=== PATIENT | male | born 1980 | race Two or more races ===

== ENCOUNTER 2024-11-10 08:49 | Inpatient (IN) | payer OTHER ==
[~2024-11-10] VITALS: Ht 170.2 cm; Wt 74.8 kg
--- NOTE | 2024-11-10 09:27 | NUR ---
SE RECIBE PTE ALERTA Y ORIENTADO X3. PTE REFIERE ATAQUE DE ASMA DESDE LA MADRUGADA. SE MIDEN S/V Y SE UBICA.
[2024-11-10] MEDS ORDERED: IPRATROPIUM BROMIDE 0.5 MG/2.5 ML AMPUL.NEB IH SCH ×2 (09:30→18:37)
[2024-11-10] MEDS ORDERED: METHYLPREDNISOLONE SOD SUCC 125 MG VIAL IV ONE (09:30)
[2024-11-10] MEDS ORDERED: LEVALBUTEROL HCL 0.63 MG/3 ML SOLUTION IH SCH (09:30)
[2024-11-10] MEDS ORDERED: METHYLPREDNISOLONE SOD SUCC 125 MG VIAL ONE (09:32)
[2024-11-10] MEDS ORDERED: WATER FOR INJ.,BACTERIOSTATIC 30 ML VIAL IJ ONE (09:32)
[2024-11-10] MEDS ORDERED: LEVALBUTEROL HCL 1.25 MG/3 ML SOLUTION IH ONE (09:33)
[2024-11-10] MEDS ORDERED: IPRATROPIUM BROMIDE 0.5 MG/2.5 ML AMPUL.NEB IH ONE (09:33)
[2024-11-10 09:44] LABS: ABG PH 7.445 (7.35-7.45); ABG pCO2 30.6 mmHg (35-45); BASE EXCESS -2.3 mmol/l; BICARBONATE 20.5 mmol/l (23-25); SaO2 94.9 %; Tco2 21.5 mmol/l
[2024-11-10 10:57] LABS: allen test SATISFACTORY; mode ROOM AIR; o2 21 %; puncture site RADIAL RIGHT
[2024-11-10 11:27] LABS: HEMATOCRIT 45.9 % (39.0-48.0); MEAN CELL VOLUME 86.8 fL (80.0-100.00); MEAN CORPUSCULAR HEMOGLOBIN 30.3 pg (27.00-32.0); MEAN CORPUSCULAR HGB CONC 34.9 g/dl (32.0-36.0); PLATELET COUNT 193 K/uL (150-450); RED CELL DISTRIBUTION WIDTH 12.9 % (11.5-14.5)
[2024-11-10 12:06] LABS: COVID-19 AG NEGATIVE (NEGATIVE)
[2024-11-10 12:07] LABS: INFLUENZA A AG NEGATIVE (NEGATIVE)
--- NOTE | 2024-11-10 12:27 | NUR ---
SE ORIENTA A PACIENTE SOBRE [place] MEDICO. SE COLECTAN MUESTRAS DE LABORATORIO Y SE CANALIZA BAJO MEDIDAS ASEPTICAS. SE ADMINISTRAN MEDICAMENTOS KONRAD ORDEN MEDICA
[2024-11-10] MEDS ORDERED: LEVALBUTEROL HCL 0.63 MG/3 ML SOLUTION IH ONE ×2 (13:15→13:36)
[2024-11-10] MEDS ORDERED: CEFTRIAXONE SODIUM 1,000 MG VIAL IV ONE (13:15)
[2024-11-10] MEDS ORDERED: CEFTRIAXONE SODIUM 1,000 MG VIAL ONE (14:18)
[2024-11-10] MEDS ORDERED: CEFTRIAXONE SODIUM 2,000 MG in 0.9 % SODIUM CHLORIDE 100 ML IV SCH (18:34)
[2024-11-10] MEDS ORDERED: AZITHROMYCIN 500 MG in DEXTROSE 5 % IN WATER 250 ML IV SCH (18:34)
[2024-11-10] MEDS ORDERED: METHYLPREDNISOLONE SOD SUCC 40 MG VIAL IV SCH (18:36)
[2024-11-10] MEDS ORDERED: LEVALBUTEROL HCL 1.25 MG/3 ML SOLUTION IH SCH (18:37)
[2024-11-10] MEDS ORDERED: GUAIFEN/DEXTROMETHORPHAN/PE 10 ML BLIST.PACK PO SCH (18:38)
[2024-11-10] MEDS ORDERED: 0.9 % SODIUM CHLORIDE 1,000 ML IV SCH (18:45)
[2024-11-10] MEDS ORDERED: ACETAMINOPHEN 500 MG GEL..CAP PO PRN (18:45)
[2024-11-10] MEDS ORDERED: CEFTRIAXONE SODIUM 2,000 MG VIAL ONE (19:02)
[2024-11-10] MEDS ORDERED: METHYLPREDNISOLONE SOD SUCC 40 MG VIAL ONE (19:02)
[2024-11-10] MEDS ORDERED: AZITHROMYCIN 500 MG VIAL IV ONE (19:03)
[2024-11-10] MEDS ORDERED: GUAIFEN/DEXTROMETHORPHAN/PE 10 ML BLIST.PACK PO ONE (19:03)
[2024-11-10] MEDS ORDERED: AZITHROMYCIN 500 MG VIAL IV SCH (19:30)
[2024-11-10 19:44] VITALS: BP 100/60
[2024-11-10 20:08] LABS: ALBUMIN 3.8 gm/dL (3.4-5.0); BILIRUBIN TOTAL 0.5 mg/dL (0.3-1.2); CALCIUM 9.4 mg/dL (8.5-10.1); CREATININE SERUM 0.98 mg/dL (0.70-1.30); GFR 82.34; GLOBULINA 4.3 G/DL (2.4-3.5); POTASSIUM 4.22 mEq/L (3.5-5.1); TOTAL PROTEIN 8.1 gm/dL (6.4-8.2)
[2024-11-10 20:09] LABS: C-REACTIVE PROTEIN 1.21 MG/DL (0.00-0.29)
[2024-11-10 20:11] LABS: INR 1.05; PARTIAL THROMBOPLASTIN TIME 29.9 SECONDS (22.0-34.0); PROTHROMBIN TIME 11.4 SECONDS (9.0-11.5)
[2024-11-10 20:27] LABS: PH,URINE 5.5 (5.0-8.0); URINE APPEARANCE Clear; URINE BILIRRUBIN Negative (NEGATIVE); URINE BLOOD Negative; URINE COLOR Yellow; URINE LEUKOCYTE Negative; URINE NITRATE Negative; URINE PROTEIN Trace (NEGATIVE)
[2024-11-10 20:31] LABS: URINE BACTERIA 8.5 uL (0.0-1933); URINE EPITHELIAL CELLS 2.5 uL (0.0-38.8); URINE RBC 10.4 uL (0.0-20.8); URINE WBC 2.5 uL (0.0-23.2)
[2024-11-10 21:02] LABS: URINE GLUCOSE 250 MG/DL (NEGATIVE); URINE KETONE 40 (NEGATIVE)
[2024-11-10 22:14] VITALS: BP 114/63
[2024-11-11] MEDS ORDERED: FAMOTIDINE/PF 20 MG in 0.9 % SODIUM CHLORIDE 8 ML IV PUSH SCH (09:00)
[2024-11-11] MEDS ORDERED: ENOXAPARIN SODIUM 40 MG/0.4 ML SYRINGE SUBCUTANEO SCH (09:00)
[2024-11-11] MEDS ORDERED: AZITHROMYCIN 500 MG VIAL IV ONE (15:21)
[2024-11-11] MEDS ORDERED: MONTELUKAST SODIUM 10 MG TABLET PO SCH (17:00)
[2024-11-12 02:35] VITALS: BP 103/66; O2SAT 94
[2024-11-12 09:14] VITALS: BP 140/84
[2024-11-12] MEDS ORDERED: AZITHROMYCIN 500 MG VIAL IV ONE (15:35)
[2024-11-12 18:24] VITALS: BP 120/71; O2SAT 96
[2024-11-13 02:54] VITALS: BP 95/53; O2SAT 95
[2024-11-13 09:59] VITALS: BP 114/69; O2SAT 98
[2024-11-13 10:21] LABS: ABG PH 7.402 (7.35-7.45); ABG PO2 89.7 mmHg (80-100); ABG pCO2 38.7 mmHg (35-45); BASE EXCESS -0.9 mmol/l; BICARBONATE 23.6 mmol/l (23-25); SaO2 96.9 %; Tco2 24.8 mmol/l
[2024-11-13 11:54] LABS: o2 21 %
[2024-11-13 11:55] LABS: allen test SATISFACTORY; mode ROOM AIR; puncture site RADIAL LEFT
[2024-11-13] MEDS ORDERED: AZITHROMYCIN 500 MG VIAL IV ONE (15:49)
[2024-11-13 18:39] VITALS: BP 131/69; O2SAT 93
[2024-11-14 01:02] VITALS: BP 155/88; O2SAT 97
[2024-11-14 10:09] VITALS: BP 118/73; O2SAT 98
[2024-11-14] MEDS ORDERED: METHYLPREDNISOLONE SOD SUCC 40 MG VIAL IV SCH ×2 (13:00→21:00)
[2024-11-14] MEDS ORDERED: AZITHROMYCIN 500 MG VIAL IV ONE (16:38)
[2024-11-14] MEDS ORDERED: POLYETHYLENE GLYCOL 3350 17 GM BLIST.PACK PO SCH (17:00)
[2024-11-14 18:45] VITALS: BP 115/72
[2024-11-14] MEDS ORDERED: FAMOtidine 20 MG TABLET PO SCH (21:00)
[2024-11-15 01:13] VITALS: BP 128/75
[2024-11-15 09:56] VITALS: BP 124/78; O2SAT 98
[2024-11-15] MEDS ORDERED: AZITHROMYCIN 500 MG VIAL IV ONE (15:54)
[2024-11-15 18:07] VITALS: BP 140/85; O2SAT 97
[2024-11-15] MEDS ORDERED: LORATADINE 10 MG TABLET PO SCH (21:00)
[2024-11-15] MEDS ORDERED: LORATADINE 10 MG TABLET PO ONE (22:16)
[2024-11-16 01:55] VITALS: BP 142/83
[2024-11-16 09:27] VITALS: BP 115/67; O2SAT 97
[2024-11-16] MEDS ORDERED: AZITHROMYCIN 500 MG VIAL IV ONE (15:31)
[2024-11-16] MEDS ORDERED: MINERAL OIL 133 ML ENEMA RECTAL NR (17:00)
[2024-11-16 17:15] VITALS: BP 150/84; O2SAT 96
[2024-11-17 01:51] VITALS: BP 119/76
[2024-11-17] MEDS ORDERED: METHYLPREDNISOLONE SOD SUCC 40 MG VIAL IV SCH (05:00)
[2024-11-17 08:36] VITALS: BP 117/71; O2SAT 94
[2024-11-17] MEDS ORDERED: LORATADINE10 MG PO (14:42)
[2024-11-17] MEDS ORDERED: MONTELUKAST SOD10 MG PO (14:42)
[2024-11-17] MEDS ORDERED: MEDROLPACK PO (14:42)
[2024-11-17] MEDS ORDERED: PROAIR RESPICL90 MCG IH (14:43)
[2024-11-17] MEDS ORDERED: IPRATROPIU0.2 MG/1 M IH (14:44)
[2024-11-17] MEDS ORDERED: XOPENEX CO1.25 MG/0. IH (14:44)
[2024-11-17] MEDS ORDERED: AZITHROMYCIN 500 MG VIAL IV ONE (16:02)
== END 2024-11-17 17:46 | disposition home or self-care (01) | DRG 203 ==
LOC: ER 08:50 → MEDJ 19:16
PROVIDERS: Emergency Medicine; General Practice; ADMIT Internal Medicine; ATTEND Internal Medicine
PROC: BW24ZZZ Computerized Tomography (CT Scan) of Chest and Abdomen (ICD-10-PCS; principal; 2024-11-10)
DX: J45.41 Moderate persistent asthma with (acute) exacerbation (principal); J40 Bronchitis, not specified as acute or chronic; R09.02 Hypoxemia